=== PATIENT | male | born 1965 | race American Indian/Alaskan Native ===

== ENCOUNTER 2019-10-10 09:21 | Outpatient (CLI) | payer MEDICAID ==
--- NOTE | 2019-10-10 10:31 | XRay Report ---
CHEST 1 VIEW INDICATION: MRI screening. COMPARISON: None FINDINGS: Support devices: None. Heart: Within normal limits. Lungs/Pleura: No acute air space or interstitial disease. Additional findings: None. IMPRESSION: Unremarkable AP chest. No pacemaker. Signer Name: Alonso Griffin Jr, MD Signed: 10/10/2019 10:26 AM Workstation Name: [id number]
--- NOTE | 2019-10-10 11:26 | Magnetic Resonance Report ---
MRI RIGHT KNEE WITHOUT CONTRAST INDICATION: 719.50 STIFFNESS OF R KNEE/729.81SWELLING OF LIMB/715.16DJDMEDIAL. COMPARISON: None available. TECHNIQUE: Multisequence, multiplanar images were obtained. FINDINGS: ACL: Normal. PCL: Normal. DISTAL QUADRICEPS TENDON: Normal. PATELLAR TENDON: Normal. MEDIAL MENISCUS: Normal. LATERAL MENISCUS: There is a complex tear of the body and anterior horn of the lateral meniscus with tiny 3 mm parameniscal cyst along the body of the lateral meniscus. POSTEROLATERAL CORNER: Normal. MCL: Normal. LCL: Normal. DISTAL BICEPS FEMORIS TENDON: Normal. POPLITEUS TENDON: Normal. DISTAL IT BAND: Normal. ARTICULAR CARTILAGE: No chondrosis or articular cartilage defect. JOINT SPACE: There is a tiny joint effusion. No popliteal cyst. INTRA-ARTICULAR BODIES: None. BONES: No bone marrow edema. No fracture. No osseous lesion. SOFT TISSUES: No acute findings. ADDITIONAL FINDINGS: None. IMPRESSION: 1. Complex tear of the body and anterior horn of the lateral meniscus. 2. Tiny joint effusion. Signer Name: Nikhil Thompson MD Signed: 10/10/2019 11:22 AM Workstation Name: [id number]
== END 2019-10-10 09:22 | disposition home or self-care (01) ==
LOC: MRI 09:21
PROVIDERS: ATTEND Orthopaedic Surgery Sports Medicine
DX: M23.041 Cystic meniscus, anterior horn of lateral meniscus, right knee (principal); M25.661 Stiffness of right knee, not elsewhere classified; R26.89 Other abnormalities of gait and mobility; M79.89 Other specified soft tissue disorders; M17.11 Unilateral primary osteoarthritis, right knee; M25.461 Effusion, right knee; M25.561 Pain in right knee
CPT/HCPCS: 71045; 73721

== ENCOUNTER 2019-11-05 13:49 | Observation (INO) | payer MEDICAID ==
--- NOTE | 2019-11-05 15:18 | Event Note ---
ED Screening Note Date of service: 11/05/19 ED Screening Note: This initial assessment/diagnostic orders/clinical plan/treatment(s) is/are subject to change based on patients health status, clinical progression and re- assessment by fellow clinical providers in the ED. Further treatment and workup at subsequent clinical providers discretion. Patient/guardian urged not to elope from the ED as their condition may be serious if not clinically assessed and managed. Initial orders include:
[2019-11-05 16:11] LABS: Basophils # (Auto) 0.1 K/mm3 (0.0-0.1); Basophils % (Auto) 0.8 % (0.0-1.8); Eosinophils # (Auto) 0.3 K/mm3 (0.0-0.4); Eosinophils % (Auto) 4.4 % (0.0-4.3); Hematocrit 40.2 % (35.5-45.6); Hemoglobin 13.2 gm/dl (11.8-15.2); Lymphocytes # (Auto) 2.6 K/mm3 (1.2-5.4); Lymphocytes % (Auto) 34.5 % (13.4-35.0); Mean Corpuscular HGB Conc 33 % (32-34); Mean Corpuscular Volume 85 fl (84-94); Monocytes # (Auto) 0.5 K/mm3 (0.0-0.8); Monocytes % (Auto) 6.5 % (0.0-7.3); Platelet Count 239 K/mm3 (140-440); Red Blood Count 4.75 M/mm3 (3.65-5.03)
[2019-11-05 16:21] LABS: INR 0.96 (0.87-1.13)
[2019-11-05 16:22] LABS: Partial Thromboplastin Time 30.2 Sec. (24.2-36.6)
[2019-11-05 16:36] LABS: Creatine Kinase MB 1.6 ng/mL (0.0-4.0)
[2019-11-05 16:37] LABS: BUN/Creatinine Ratio 16; Blood Urea Nitrogen 18 mg/dL (9-20); Calcium 9.4 mg/dL (8.4-10.2)
[2019-11-05 16:38] LABS: Alanine Aminotransferase 15 units/L (7-56); Albumin 4.2 g/dL (3.9-5); Hemolysis Index 11
[2019-11-05 16:43] LABS: Bilirubin,Direct < 0.2 mg/dL (0-0.2)
--- NOTE | 2019-11-05 16:46 | XRay Report ---
CHEST 2 VIEWS INDICATION / CLINICAL INFORMATION: SUSAN. COMPARISON: Chest radiograph 10/10/2019 FINDINGS: SUPPORT DEVICES: None. HEART / MEDIASTINUM: No significant abnormality. LUNGS / PLEURA: No significant pulmonary or pleural abnormality. No pneumothorax. Scattered small, ca lcified granulomas in both lungs. ADDITIONAL FINDINGS: No significant additional findings. IMPRESSION: No acute finding. No significant change. Signer Name: Timothy Yost MD Signed: 11/05/2019 4:42 PM Workstation Name: [id number]
[2019-11-05] MEDS ORDERED: fentaNYL 100 MCG/2 ML INJ IV ONE (23:03)
[2019-11-05] MEDS ORDERED: ONDANSETRON 4 MG/2 ML INJ IV ONE (23:03)
[2019-11-05] MEDS ORDERED: NITROGLYCERIN 2% OINT 1 GM TP ONE ×2 (23:03→23:46)
[2019-11-05] MEDS ORDERED: ASPIRIN 325 MG TAB PO ONE (23:03)
--- NOTE | 2019-11-05 23:17 | Emergency Department Report ---
HPI - General Chief Complaint: Chest Pain Time Seen by Provider: 11/05/19 22:29 - HPI HPI: Room 5 The pt is a 54 y/o M p/w a cc of CP. The p states he's had CP x 3 weeks. Pain is sharp and constant in nature. Pt admits to sob, n/v and diaphoresis. Pt gives his CP a score of 10/10. Pt states he had a cardiac stent placed 2-3 years ago ED Past Medical Hx - Past Medical History Previous Medical History?: Yes Hx Hypertension: Yes Hx Renal Disease: Yes Additional medical history: "bone cancer" in remission - Surgical History Past Surgical History?: No Hx Coronary Stent: Yes Hx Open Heart Surgery: Yes (as a baby) Additional Surgical History: undescended Testicle - Family History Family history: no significant - Social History Smoking Status: Never Smoker Substance Use Type: None (denies illicit drug use) - Medications Home Medications: Home Medications Medication Instructions Recorded Confirmed Last Taken Type Acetaminophen/Codeine [Tylenol #3] 1 tab PO Q6H PRN #15 tab 11/15/15 12/23/15 Unknown Rx HYDROcodone/APAP 5-325 [[place] 1 each PO Q6HR PRN #10 tablet 12/23/15 Unknown Rx 5/325] ED Review of Systems ROS: Stated complaint: L SHOULDER PAIN/CHEST Other details as noted in HPI Constitutional: diaphoresis Eyes: denies: eye pain ENT: denies: throat pain Respiratory: shortness of breath Cardiovascular: chest pain Endocrine: no symptoms reported Gastrointestinal: nausea, vomiting Genitourinary: denies: dysuria Musculoskeletal: denies: back pain Neurological: denies: headache Physical Exam - Physical Exam Vital Signs: Vital Signs 11/05/19 15:14 Temperature 98.4 F Pulse Rate 79 Respiratory 22 Rate Blood Pressure 134/94 O2 Sat by Pulse 93 Oximetry Physical Exam: [facility] [address] [place] [address] XRay Report Signed Patient: FRANK MIRANDA MR#: [id number] 7 : 12/18/1943 Acct:[id number] Age/Sex: 75 / M ADM Date: 11/05/19 Loc: ED Attending Dr: GEN: GLEN WN Lying on stretcher in NAD HEENT: NCAT, EOMI NECK: Trachea midline, no nuchal rigidity CV: rrr no m/r/g PULM: CTA Bilat ABD: S/NT/ND +BS NEURO: A&O, GCS 15 SKIN: No diaphoresis MUSC: no evidence of acute injury ED Course Vital Signs 11/05/19 15:14 Temperature 98.4 F Pulse Rate 79 Respiratory 22 Rate Blood Pressure 134/94 O2 Sat by Pulse 93 Oximetry ED Medical Decision Making - Lab Data Result diagrams: 11/05/19 15:56 11/05/19 15:56 Laboratory Tests 11/05/19 11/05/19 11/05/19 15:56 15:56 15:56 WBC 7.5 RBC 4.75 Hgb 13.2 Hct 40.2 MCV 85 MCH 28 MCHC 33 RDW 15.0 Plt Count 239 Lymph % (Auto) 34.5 [place] % (Auto) 6.5 Eos % (Auto) 4.4 H Baso % (Auto) 0.8 Lymph # 2.6 [place] # 0.5 Eos # 0.3 Baso # 0.1 Seg Neutrophils % 53.8 Seg Neutrophils # 4.0 PT 12.9 INR 0.96 APTT 30.2 D-Dimer 183.55 Sodium 140 Potassium 4.5 Chloride 104.9 Carbon Dioxide 20 L Anion Gap 20 BUN 18 Creatinine 1.1 Estimated GFR > 60 BUN/Creatinine Ratio 16 Glucose 111 H Calcium 9.4 Magnesium 2.20 Total Bilirubin 0.20 Direct Bilirubin < 0.2 Indirect Bilirubin 0.0 AST 15 ALT 15 Alkaline Phosphatase 99 Total Creatine Kinase 141 CK-MB (CK-2) 1.6 CK-MB (CK-2) Rel Index 1.1 Troponin T < 0.010 NT-Pro-B Natriuret Pep 20.01 Total Protein 7.4 Albumin 4.2 Albumin/Globulin Ratio 1.3 - EKG Data -: EKG Interpreted by Me EKG shows normal: sinus rhythm Rate: normal - EKG Data When compared to previous EKG there are: previous EKG unavailable Interpretation: nonspecific ST-T wave andrew (TWI leads v3, v4) - Radiology Data Radiology results: report reviewed (CXR), image reviewed (CXR) interpreted by me: CXR- no focal infiltrates, no ptx [facility] [address] [place] [address] XRay Report Signed Patient: ISAAC MARIE JR MR#: [id number] : 1965 Acct:[id number] Age/Sex: 54 / M ADM Date: 11/05/19 Loc: ED Attending Dr: Ordering Physician: GUSTAVO BUTTS MD Date of Service: 11/05/19 Procedure(s): XR chest routine 2V Accession Number(s): [id number] cc: GUSTAVO BUTTS MD Fluoro Time In Minutes: CHEST 2 VIEWS INDICATION / CLINICAL INFORMATION: SUSAN. COMPARISON: Chest radiograph 10/10/2019 FINDINGS: SUPPORT DEVICES: None. HEART / MEDIASTINUM: No significant abnormality. LUNGS / PLEURA: No significant pulmonary or pleural abnormality. No pneumothorax. Scattered small, calcified granulomas in both lungs. ADDITIONAL FINDINGS: No significant additional findings. IMPRESSION: No acute finding. No significant change. Signer Name: Timothy Yost MD Signed: 11/05/2019 4:42 PM Workstation Name: [id number] Transcribed By: DMB Dictated By: Timothy Yost MD Electronically Authenticated By: Timothy Yost MD Signed Date/Time: 11/05/191641 DD/ 164 TD/TT: - Differential Diagnosis ACS, GERD, Pericarditis Critical care attestation.: If time is entered above; I have spent that time in minutes in the direct care of this critically ill patient, excluding procedure time. ED Disposition Clinical Impression: Chest pain Disposition: OP ADMIT IP TO THIS HOSP Is pt being admited?: Yes Does the pt Need Aspirin: Yes Condition: Fair Instructions: Chest Pain (ED) Referrals: PRIMARY CARE, [Primary Care Provider] - 3-5 Days Time of Disposition: 23:23 (Hospitalist notified (Dr Santos))
[2019-11-05] MEDS ORDERED: ASPIRIN 325 MG TAB ONE (23:46)
[2019-11-05] MEDS ORDERED: ONDANSETRON 4 MG/2 ML INJ ONE (23:46)
[2019-11-05] MEDS ORDERED: fentaNYL 100 MCG/2 ML INJ ONE (23:47)
[2019-11-05] MEDS ORDERED: ACETAMINOPHEN 325 MG TAB PO PRN (23:57)
[2019-11-05] MEDS ORDERED: MAGNESIUM HYDROXIDE (MOM) ORAL LIQD UDC PO PRN (23:57)
[2019-11-05] MEDS ORDERED: ONDANSETRON 4 MG/2 ML INJ IV PRN (23:57)
[2019-11-05] MEDS ORDERED: NITROGLYCERIN 0.4 MG TAB SUBL SL PRN (23:57)
[2019-11-05] MEDS ORDERED: ALUM-MAG HYDROXIDE-SIMETHICONE 200-200-20MG/5ML ORAL LIQD 30 ML PO PRN (23:57)
--- NOTE | 2019-11-06 00:45 | History and Physical Report ---
History of Present Illness Date of examination: 11/05/19 Date of admission: 11/05/19 23:24 Chief complaint: Chest Pain History of present illness: 54-year-old -[place] male with known history of coronary artery disease with stent placement about 2 to 3 years ago presenting to the emergency room today complaining of her chest pain. Chest pain is said to be left-sided and radiating towards the left upper extremity and left shoulder. On a scale of 10 pain was said to be about 10/10 in severity, there is no no relieving or exacerbating factor. He has had associated nausea and vomiting and also said he was diaphoretic. He denies any fever or chills, denies any headache or dizziness, denies any cough. Past History Past Medical History: CAD (With stent placement.) Past Surgical History: Other (Heart surgery in childhood) Social history: no significant social history Family history: diabetes, hypertension Medications and Allergies Allergies Allergy/AdvReac Type Severity Reaction Status Date / Time No Known Allergies Allergy Verified 11/14/15 21:28 Home Medications Medication Instructions Recorded Confirmed Last Taken Type Acetaminophen/Codeine [Tylenol #3] 1 tab PO Q6H PRN #15 tab 11/15/15 11/06/19 Unknown Rx HYDROcodone/APAP 5-325 [[place] 1 each PO Q6HR PRN #10 tablet 12/23/15 11/06/19 Unknown Rx 5/325] Active Meds: Active Medications Acetaminophen (Tylenol) 650 mg PO Q4H PRN PRN Reason: Pain MILD(1-3)/Fever >100.5/SOLORZANO Al Hydrox/Mg Hydrox/Simethicone (Alum-Mag Hydrox-Simeth [phone]/5ml) 30 ml PO Q4H PRN PRN Reason: Indigestion Aspirin (Ecotrin) 325 mg PO QDAY MARTY Magnesium Hydroxide (Milk Of Magnesia) 30 ml PO Q4H PRN PRN Reason: Constipation Morphine Sulfate (Morphine) 2 mg IV Q5MIN PRN PRN Reason: Chest Pain unrelieved by NTG Nitroglycerin (Nitrostat) 0.4 mg SL Q5M PRN PRN Reason: Chest Pain Ondansetron HCl (Zofran) 4 mg IV Q8H PRN PRN Reason: Nausea And Vomiting Sodium Chloride (Sodium Chloride Flush Syringe 10 Ml) 10 ml IV BID MARTY Sodium Chloride (Sodium Chloride Flush Syringe 10 Ml) 10 ml IV PRN PRN PRN Reason: LINE FLUSH Review of Systems Constitutional: no fever, no chills Ears, nose, mouth and throat: no tinnitis, no headache Cardiovascular: chest pain, no palpitations, no lightheadedness Respiratory: shortness of breath, no cough Gastrointestinal: no nausea, no vomiting Genitourinary Male: no dysuria, no flank pain Musculoskeletal: no neck pain, no low back pain Neurological: no syncope, no headaches Exam - Constitutional Vitals: Temp Pulse Resp BP Pulse Ox 98.4 F 75 22 113/73 93 11/05/19 15:14 11/06/19 00:05 11/05/19 15:14 11/06/19 00:05 11/05/19 15:14 General appearance: Present: no acute distress, well-nourished, obese - EENT Eyes: Present: PERRL, EOM intact ENT: hearing intact, clear oral mucosa, dentition normal - Neck Neck: Present: supple, normal ROM - Respiratory Respiratory effort: normal Respiratory: bilateral: CTA - Cardiovascular Rhythm: regular Heart Sounds: Present: S1 & S2 - Extremities Extremities: no ischemia, No edema, Full ROM Peripheral Pulses: within normal limits - Abdominal General gastrointestinal: Present: soft, non-tender, non-distended - Integumentary Integumentary: Present: clear, warm, dry - Musculoskeletal Musculoskeletal: strength equal bilaterally - Psychiatric Psychiatric: appropriate mood/affect, intact judgment & insight, cooperative - Neurologic Neurologic: CNII-XII intact, moves all extremities Results - Labs CBC & Chem 7: 11/05/19 15:56 11/06/19 00:45 Labs: Abnormal lab results 11/05/19 11/05/19 Range/Units 15:56 15:56 Eos % (Auto) 4.4 H (0.0-4.3) % Carbon Dioxide 20 L (22-30) mmol/L Glucose 111 H (75-100) mg/dL Assessment and Plan - Patient Problems (1) Chest pain Current Visit: Yes Status: Acute Plan to address problem: Patient admitted and placed on telemetry. We will check her serial cardiac enzymes. Patient has been placed on sublingual nitroglycerin and IV morphine as needed for chest pain. She is also started on daily aspirin. Patient will be scheduled for an echocardiogram and also for stress test. (2) DVT prophylaxis Current Visit: Yes Status: Acute Plan to address problem: He is placed on subcutaneous heparin. (3) Full code status Current Visit: Yes Status: Acute
[2019-11-06] MEDS ORDERED: MORPHINE 2 MG/1 ML INJ ONE (01:27)
[2019-11-06 01:28] LABS: BUN/Creatinine Ratio 15; Blood Urea Nitrogen 16 mg/dL (9-20); Calcium 8.7 mg/dL (8.4-10.2); Hemolysis Index 73
[2019-11-06] MEDS: MORPHINE 2 MG/1 ML INJ IV PRN ×3 (01:31→14:46)
[2019-11-06 06:18] LABS: INR 1.06 (0.87-1.13)
[2019-11-06 06:19] LABS: Partial Thromboplastin Time 28.1 Sec. (24.2-36.6)
[2019-11-06 06:20] LABS: Basophils % (Auto) 0.1 % (0.0-1.8); Eosinophils # (Auto) 0.2 K/mm3 (0.0-0.4); Eosinophils % (Auto) 2.5 % (0.0-4.3); Hematocrit 39.4 % (35.5-45.6); Hemoglobin 12.8 gm/dl (11.8-15.2); Lymphocytes % (Auto) 22.1 % (13.4-35.0); Mean Corpuscular HGB Conc 33 % (32-34); Mean Corpuscular Volume 84 fl (84-94); Monocytes # (Auto) 0.7 K/mm3 (0.0-0.8); Monocytes % (Auto) 7.6 % (0.0-7.3); Platelet Count 241 K/mm3 (140-440); Red Cell Distribution Width 14.9 % (13.2-15.2)
[2019-11-06 06:26] LABS: BUN/Creatinine Ratio 15; Blood Urea Nitrogen 17 mg/dL (9-20); Calcium 8.9 mg/dL (8.4-10.2); Hemolysis Index 1
[2019-11-06] MEDS ORDERED: REGADENOSON 0.4 MG/5 ML INJ IV ONE (07:27)
[2019-11-06 08:32] LABS: Amphetamine Screen,Urine PRESUMPTIVE NEGATIVE; Benzodiazepines Screen,Urine PRESUMPTIVE NEGATIVE; Cannabinoid Screen,Urine PRESUMPTIVE NEGATIVE; Cocaine Screen,Urine PRESUMPTIVE NEGATIVE; Methadone Screen,Urine PRESUMPTIVE NEGATIVE
[2019-11-06 09:01] LABS: Opiate Screen,Urine PRESUMPTIVE POSITIVE
[2019-11-06] MEDS ORDERED: SODIUM CHLORIDE 0.9% 250ML 250 ML IV ONE (09:30)
[2019-11-06] MEDS ORDERED: ASPIRIN EC 325 MG TAB PO SCH (10:00)
--- NOTE | 2019-11-06 10:56 | Event Note ---
Date: 11/06/19 Patient seen and examined. We will continue to plan as outlined in H&P. Total time equals 25 minutes with greater than 50% spent on coordination of care and counseling.
[2019-11-06] MEDS ORDERED: FLU VACC QUAD 2019-20 (3 YR UP)/PF 60 MCG/0.5 ML SYRINGE IM ONE (12:00)
--- NOTE | 2019-11-06 13:37 | Consultation ---
History of Present Illness Consult date: 11/06/19 Requesting physician: BONI CASPER Consult reason: chest pain History of present illness: The pt is a 54-year-old male with a past medical history of reported CAD s/p AMI with PCI at [facility] 2 years ago. He is previously unknown to our practice. He presented with c/o chest pain for the past 3 weeks. He describes his chest pain as an intermittent precordial stabbing pain which radiates into the left arm and sometimes down the right leg. The pain was associated with some n/v and diaphoresis. Pt admits that he has been noncompliant with his medications and OP follow up. Past History Past Medical History: CAD (With stent placement.) Past Surgical History: Other (Heart surgery in childhood) Social history: no significant social history Family history: diabetes, hypertension Medications and Allergies Allergies Allergy/AdvReac Type Severity Reaction Status Date / Time No Known Allergies Allergy Verified 11/14/15 21:28 Home Medications Medication Instructions Recorded Confirmed Last Taken Type Acetaminophen/Codeine [Tylenol #3] 1 tab PO Q6H PRN #15 tab 11/15/15 11/06/19 Unknown Rx HYDROcodone/APAP 5-325 [[place] 1 each PO Q6HR PRN #10 tablet 12/23/15 11/06/19 Unknown Rx 5/325] Active Meds: Active Medications Acetaminophen (Tylenol) 650 mg PO Q4H PRN PRN Reason: Pain MILD(1-3)/Fever >100.5/SOLORZANO Al Hydrox/Mg Hydrox/Simethicone (Alum-Mag Hydrox-Simeth [phone]/5ml) 30 ml PO Q4H PRN PRN Reason: Indigestion Aspirin (Ecotrin) 325 mg PO QDAY MARTY Heparin Sodium (Porcine) (Heparin) 5,000 unit SUB-Q Q8HR MARTY Magnesium Hydroxide (Milk Of Magnesia) 30 ml PO Q4H PRN PRN Reason: Constipation Morphine Sulfate (Morphine) 2 mg IV Q5MIN PRN PRN Reason: Chest Pain unrelieved by NTG Last Admin: 11/06/19 03:45 Dose: 2 mg Documented by: Nitroglycerin (Nitrostat) 0.4 mg SL Q5M PRN PRN Reason: Chest Pain Ondansetron HCl (Zofran) 4 mg IV Q8H PRN PRN Reason: Nausea And Vomiting Sodium Chloride (Sodium Chloride Flush Syringe 10 Ml) 10 ml IV BID MARTY Sodium Chloride (Sodium Chloride Flush Syringe 10 Ml) 10 ml IV PRN PRN PRN Reason: LINE FLUSH Last Admin: 11/06/19 03:50 Dose: 10 ml Documented by: Review of Systems Constitutional: no weight loss, no weight gain, no fever, no chills Ears, nose, mouth and throat: no ear pain, no nose pain, no sinus pressure, no sinus pain Cardiovascular: chest pain, no orthopnea, no palpitations, no rapid/irregular heart beat, no edema, no syncope, no lightheadedness, no shortness of breath, no dyspnea on exertion, no leg edema Respiratory: no cough, no shortness of breath, no dyspnea on exertion, no congestion, no wheezing, no pain on inspiration Gastrointestinal: nausea, vomiting, no abdominal pain, no diarrhea, no constipation, no change in bowel habits Genitourinary Male: no dysuria, no hematuria, no flank pain, no discharge, no urinary frequency, no urinary hesitancy Musculoskeletal: no neck stiffness, no neck pain, no shooting arm pain, no arm numbness/tingling, no low back pain, no shooting leg pain Integumentary: no rash, no pruritis, no redness, no sores, no wounds Neurological: no head injury, no paralysis, no weakness, no parathesias, no numbness, no tingling, no seizures, no syncope Psychiatric: no anxiety Endocrine: no cold intolerance, no heat intolerance Hematologic/Lymphatic: no easy bruising, no easy bleeding Allergic/Immunologic: no urticaria Physical Examination Vital Signs Temp Pulse Resp BP Pulse Ox 98.4 F 78 22 134/94 93 11/05/19 14:02 11/05/19 14:02 11/05/19 14:02 11/05/19 14:02 11/05/19 14:02 General appearance: no acute distress HEENT: Positive: PERRL, Normocephaly, Mucus Membranes Moist Neck: Positive: neck supple, trachea midline Cardiac: Positive: Reg Rate and Rhythm, S1/S2 Lungs: Positive: Decreased Breath Sounds Neuro: Positive: Grossly Intact Abdomen: Negative: Tender Skin: Negative: Rash Musculoskeletal: No Pain Extremities: Absent: edema Results 11/06/19 04:31 11/06/19 04:31 Cardiac Enzymes 11/05/19 Range/Units 15:56 AST 15 (5-40) units/L CK-MB (CK-2) 1.6 (0.0-4.0) ng/mL Coagulation 11/05/19 11/06/19 Range/Units 15:56 04:31 PT 12.9 13.9 (12.2-14.9) Sec. INR 0.96 1.06 (0.87-1.13) APTT 30.2 28.1 (24.2-36.6) Sec. CBC 11/05/19 11/06/19 Range/Units 15:56 04:31 WBC 7.5 9.2 (4.5-11.0) K/mm3 RBC 4.75 4.70 (3.65-5.03) M/mm3 Hgb 13.2 12.8 (11.8-15.2) gm/dl Hct 40.2 39.4 (35.5-45.6) % Plt Count 239 241 (140-440) K/mm3 Lymph # 2.6 2.0 (1.2-5.4) K/mm3 [place] # 0.5 0.7 (0.0-0.8) K/mm3 Eos # 0.3 0.2 (0.0-0.4) K/mm3 Baso # 0.1 0.0 (0.0-0.1) K/mm3 Comprehensive Metabolic Panel 11/05/19 11/06/19 11/06/19 Range/Units 15:56 00:45 04:31 Sodium 140 139 137 (137-145) mmol/L Potassium 4.5 4.0 4.1 (3.6-5.0) mmol/L Chloride 104.9 104.7 102.3 (98-107) mmol/L Carbon Dioxide 20 L 24 25 (22-30) mmol/L BUN 18 16 17 (9-20) mg/dL Creatinine 1.1 1.1 1.1 (0.8-1.5) mg/dL Glucose 111 H 117 H 98 (75-100) mg/dL Calcium 9.4 8.7 8.9 (8.4-10.2) mg/dL Direct Bilirubin < 0.2 (0-0.2) mg/dL Indirect Bilirubin 0.0 mg/dL AST 15 (5-40) units/L ALT 15 (7-56) units/L Alkaline Phosphatase 99 (35-129) units/L Total Protein 7.4 (6.3-8.2) g/dL Albumin 4.2 (3.9-5) g/dL - Imaging and Cardiology EKG: report reviewed, image reviewed EKG interpretations - Telemetry EKG Rhythm: Sinus Rhythm - EKG Sinus rhythms and dysrhythmias: sinus rhythm Assessment and Plan S/p lexiscan MPI stress test this AM which was negative for ischemia, EF 50%. Echo pending. Currently stable cardiac status. Chest pain currently resolved. Pt may discharge home from cardiology standpoint on present cardiac regimen. Recommend follow up in our office with Dr. Mina within 1-2 weeks ([phone]). The patient has been seen in conjunction with Dr. Mina who agrees with the assessment and plan of care. - Patient Problems (1) Chest pain Current Visit: Yes Status: Resolved (2) CAD (coronary artery disease) Current Visit: Yes Status: Chronic (3) Stented coronary artery Current Visit: Yes Status: Chronic (4) Medical non-compliance Current Visit: Yes Status: Chronic
[2019-11-06] MEDS: HEPARIN 5,000 UNIT/1 ML VIAL SUB-Q SCH ×2 (14:00→21:02)
[2019-11-06] MEDS ORDERED: MORPHINE 2 MG/1 ML INJ IV PRN (19:03)
[2019-11-06] MEDS ORDERED: NITROGLYCERIN 0.4 MG TAB SUBL SL PRN (19:04)
[2019-11-06] MEDS: BENZONATATE 100 MG CAP PO SCH (20:47)
--- NOTE | 2019-11-06 21:06 | Treadmill Report ---
LEXISCAN STRESS TEST REPORT REASON FOR STUDY: Chest pain. STRESS TEST PROTOCOL: The patient received 0.4 mg of Lexiscan intravenously over 10 seconds. Tc-99m Tetrofosmin was subsequently injected. Baseline ECG, sinus bradycardia. Lexiscan ECG, no ischemic changes. No chest pain. No arrhythmias. IMPRESSION: Electrocardiographically negative stress test. Nuclear imaging report to follow. JOB# [id number] JOSE/NTS
--- NOTE | 2019-11-07 03:09 | Treadmill Report ---
THALLIUM REPORT REASON FOR STUDY: Chest pain. IMAGING PROTOCOL: The patient received 10 mCi of technetium Tetrofosmin for rest imaging, and 28 mCi of technetium Tetrofosmin for stress imaging. Imaging for all procedures was completed 30-90 minutes following the initial injection of Technetium 99m Tetrofosmin. SPECT imaging in the 180 degree arc was performed in the right anterior oblique projection. Computerized reconstruction of the images was performed for analysis. NUCLEAR IMAGING RESULTS: Technically limited study due to soft tissue attenuation artifact. Normal left ventricular cavity size with no change from stress to rest. Distribution of radionuclide within the left ventricle revealed normal myocardial photon uptake with stress and rest imaging. Gated SPECT imaging revealed borderline normal global LV systolic function with no significant wall motion abnormalities. The calculated left ventricular ejection fraction is 50%. IMPRESSION: Normal stress and rest myocardial perfusion imaging. Borderline normal global LV systolic function with no significant wall motion abnormalities. EF 50%. No evidence of significant stress-induced ischemia or prior infarction. JOB# [id number] AGO/NTS
[2019-11-07] MEDS: HEPARIN 5,000 UNIT/1 ML VIAL SUB-Q SCH (07:08)
[2019-11-07 08:19] VITALS: BP 116/75
[2019-11-07] MEDS: BENZONATATE 100 MG CAP PO SCH (09:55)
[2019-11-07] MEDS ORDERED: ASPIRIN 81 MG TAB CHEW PO SCH (10:00)
--- NOTE | 2019-11-07 10:59 | Discharge Summary ---
Providers - Providers Date of Admission: 11/05/19 23:24 Date of discharge: 11/07/19 Attending physician: ANDRÉS ROSARIO 11/05/19 23:57 Consult to Cardiac Rehabilitation [CONS] Routine Reason For Exam: chest pain POLLY 0-4 Additional Notes/Special Instructions: Phase 1 Consult to Physician [CONS] Routine Comment: Consulting Provider: REJI ERAZO Physician Instructions: Reason For Exam: CHEST PAIN, H/O CAD WITH STENT IN THE PAST Primary care physician: CRYPTOLOGIC SUPERVISOR Hospitalization Reason for admission: cp Condition: Fair Hospital course: 54-year-old male presented to the emergency department with complaints of chest pain. He described the pain is intermittent precordial stabbing pain which radiates into the left arm. The patient was seen by cardiology in consultation. Patient underwent stress test and echocardiogram. Stress test showed no evidence of ischemia and echocardiogram revealed left ventricular systolic function at lower limits of normal with a EF of 50 to 55% and no other abnormalities. Patient was set for discharge after the stress test however complained of dizziness upon standing with orthostasis. Therefore, discharge was held and patient received IV fluid bolus. Patient is now back to baseline will be discharged home. Dedicated discharge time 35 minutes. Etiology of chest pain likely GERD Disposition: DC-01 TO HOME OR SELFCARE Time spent for discharge: 35 - Discharge Diagnoses (1) Orthostatic dizziness Status: Acute (2) CAD (coronary artery disease) Status: Chronic (3) Chest pain Status: Resolved Core Measure Documentation - Palliative Care Palliative Care/ Comfort Measures: Not Applicable - Core Measures Any of the following diagnoses?: none Exam - Constitutional Vitals: Temp Pulse Resp BP Pulse Ox 99.2 F 99 H 18 116/75 95 11/07/19 08:17 11/07/19 10:00 11/07/19 08:17 11/07/19 08:17 11/07/19 08:17 General appearance: Present: no acute distress, well-nourished - EENT Eyes: Present: PERRL ENT: hearing intact, clear oral mucosa - Neck Neck: Present: supple, normal ROM - Respiratory Respiratory effort: normal Respiratory: bilateral: CTA - Cardiovascular Heart Sounds: Present: S1 & S2. Absent: rub, click - Extremities Extremities: pulses symmetrical, No edema Peripheral Pulses: within normal limits - Abdominal General gastrointestinal: Present: soft, non-tender, non-distended, normal bowel sounds Male genitourinary: Present: normal - Integumentary Integumentary: Present: clear, warm, dry - Musculoskeletal Musculoskeletal: gait normal, strength equal bilaterally - Psychiatric Psychiatric: appropriate mood/affect, intact judgment & insight - Neurologic Neurologic: CNII-XII intact, moves all extremities Plan Activity: advance as tolerated Weight Bearing Status: Weight Bear as Tolerated Diet: low fat, low cholesterol, low salt Follow up with: CORA CONN MD [Staff Physician] - 7 Days PRIMARY CARE, [Primary Care Provider] - 3-5 Days Prescriptions: Aspirin [Aspirin BABY CHEW TAB] 81 mg PO QDAY #30 tab.chew AtorvaSTATin [Lipitor] 20 mg PO QHS #30 tablet HYDROcodone/APAP 5-325 [[place] 5-325 mg TAB] 1 each PO Q6HR PRN #10 tablet PRN Reason: Pain Pantoprazole [Protonix] 40 mg PO QDAY #30 tablet
== END 2019-11-07 14:08 | disposition home or self-care (01) ==
LOC: ED 13:49 → 4A 23:24
PROVIDERS: ADMIT Internal Medicine Geriatric Medicine; ATTEND Hospitalist
DX: R07.89 Other chest pain (principal); I25.10 Atherosclerotic heart disease of native coronary artery without angina pectoris; I10 Essential (primary) hypertension; C41.9 Malignant neoplasm of bone and articular cartilage, unspecified; R42 Dizziness and giddiness; Z91.19 Patient's noncompliance with other medical treatment and regimen; Z95.5 Presence of coronary angioplasty implant and graft; Z79.82 Long term (current) use of aspirin; Z79.899 Other long term (current) drug therapy
CPT/HCPCS: 36415; 71046; 78452; 80048; 80076; 80307; 82550; 82553; 83735; 83880; 84484; 85025; 85379; 85610; 85730; 90686; 93005; 93010; 93017; 93306; 96372; 96374; 96375; 96376; 99284; A9270; A9502; G0378; J1644; J2270; J2405; J2785; J3010; J7050